=== PATIENT | female | born 1975 | race Two or more races ===

== ENCOUNTER 2020-05-10 07:00 | Day surgery (SDC) | payer OTHER ==
[~2020-05-10] VITALS: Ht 157.5 cm; Wt 94.3 kg
[~2020-05-10 07:00] MED LIST: ADVAIR 100-501 EACH IH; ALLERGY RELIE15.8 ML NASAL; CLARITIN10 M2 PO; FOLIC ACID0.8 M1 PO; NORVASC2.5 M1 PO; OMEPRAZOLE MAGN20 MG PO; PEPCID AC20 MG PO; SINGULAIR10 MG PO; TENORMIN25 MG PO
== END 2020-05-10 19:27 | disposition home or self-care (01) ==
LOC: CIR.AMB 07:00 → O/R 08:00 → EDSTATUS 08:00 → O/R 09:19 → SURH 17:26 → O/R 18:30 → CIR.AMB 19:27 → O/R 19:27 → SURH 20:20
PROVIDERS: ATTEND Surgery
DX: C73 Malignant neoplasm of thyroid gland (principal)

== ENCOUNTER 2024-05-22 15:41 | Emergency (ER) | payer OTHER ==
[~2024-05-22] VITALS: Ht 157.5 cm; Wt 104.3 kg
[2024-05-22] MEDS ORDERED: SYNTHROID75 MCG PO (15:49)
[2024-05-22] MEDS ORDERED: ZOLOFT25 MG PO (15:50)
[2024-05-22 17:26] LABS: HEMATOCRIT 30.9 % (36.0-45.00); HEMOGLOBIN 10.2 g/dL (12.0-15.00); MEAN CELL VOLUME 85.6 fL (80.00-100.00); MEAN CORPUSCULAR HEMOGLOBIN 28.1 pg (27.00-32.0); MEAN CORPUSCULAR HGB CONC 32.8 g/dl (32.0-36.0); PLATELET COUNT 270 K/uL (150-450); RED BLOOD COUNT 3.61 M/uL (4.00-6.00); RED CELL DISTRIBUTION WIDTH 14.2 % (11.5-14.5)
[2024-05-22 18:06] LABS: INR 0.95; PARTIAL THROMBOPLASTIN TIME 26.6 SECONDS (22.0-34.0); PROTHROMBIN TIME 10.4 SECONDS (9.0-11.5)
[2024-05-22 18:11] LABS: ALBUMIN 3.3 gm/dL (3.4-5.0); BILIRUBIN TOTAL 0.16 mg/dL (0.3-1.2); CALCIUM 9.1 mg/dL (8.5-10.1); CREATININE SERUM 0.7 mg/dL (0.55-1.02); GFR 89.69; GLOBULINA 3.6 G/DL (2.4-3.5); POTASSIUM 3.98 mEq/L (3.5-5.1); TOTAL PROTEIN 6.9 gm/dL (6.4-8.2)
== END 2024-05-22 19:58 | disposition home or self-care (01) ==
LOC: ER 15:44
PROVIDERS: Emergency Medicine
DX: N93.8 Other specified abnormal uterine and vaginal bleeding (principal); Z91.041 Radiographic dye allergy status; Z85.850 Personal history of malignant neoplasm of thyroid; E03.8 Other specified hypothyroidism; I10 Essential (primary) hypertension; J45.909 Unspecified asthma, uncomplicated; F41.8 Other specified anxiety disorders; R10.2 Pelvic and perineal pain